=== PATIENT | female | born 1975 | race Caucasian/White ===

== ENCOUNTER 2017-11-15 16:09 | Emergency (ER) | payer OTHER ==
[~2017-11-15] VITALS: Ht 167.6 cm; Wt 55.9 kg
[2017-11-15 17:06] LABS: ABSOLUTE BASOPHILS 0.1 thou/uL (0.0-0.2); ABSOLUTE LYMPHOCYTES 1.2 thou/uL (0.8-5.3); ABSOLUTE MONOCYTES 0.3 thou/uL (0.0-1.2); ABSOLUTE NEUTROPHILS 7.9 thou/uL (1.6-8.1); BASOPHILS 0.7 %; EOSINOPHILS 0.5 %; HEMATOCRIT 39.5 % (37.0-47.0); HEMOGLOBIN 13.7 gm/dL (12.0-15.0); LYMPHOCYTES 12.7 %; MCH 31.6 pg (26.0-34.0); MCHC 34.6 g/dL (28.0-37.0); MCV 91.2 fL (80.0-100.0); MONOCYTES 3.5 %; MPV 8.2 fl. (7.2-11.1); NUCLEATED RBCS 0 /100WBC; PLATELET COUNT* 204 thou/uL (150-400); POLYS 82.6 %; RBC 4.34 mil/uL (4.20-5.00); WBC 9.6 thou/uL (4.0-11.0)
[2017-11-15 17:17] LABS: APTT 27.1 Seconds (25.0-31.3); PROTIME 10.7 Seconds (9.20-11.50)
[2017-11-15 17:20] LABS: ANION GAP 6 mmol/L (7-16); BUN 11 mg/dL (7-18); CALCIUM 8.4 mg/dL (8.5-10.1); CHLORIDE 103 mmol/L (98-107); CO2 23 mmol/L (21-32); CREATININE 0.7 mg/dL (0.6-1.3); GLUCOSE 104 mg/dL (70-99); POTASSIUM 3.2 mmol/L (3.5-5.1); SODIUM 132 mmol/L (136-145)
[2017-11-15 17:27] LABS: ALBUMIN 3.4 g/dL (3.4-5.0); ALKALINE PHOSPHATASE 70 U/L (46-116); SGOT 15 U/L (15-37); SGPT 17 U/L (30-65); TOTAL BILIRUBIN 0.2 mg/dL (<0.1-1.0); TOTAL PROTEIN 6.4 g/dL (6.4-8.2); TROPONIN-I LEVEL <0.06 ng/mL (<0.06)
[2017-11-15 18:46] VITALS: BP 95/58
--- NOTE | 2017-11-17 10:30 | EKG ---
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
== END 2017-11-15 18:47 | disposition home or self-care (01) ==
LOC: M.ERS 16:09
PROVIDERS: Personal Emergency Response Attendant
DX: I20.8 Other forms of angina pectoris (principal); F41.9 Anxiety disorder, unspecified; F17.210 Nicotine dependence, cigarettes, uncomplicated; Z91.041 Radiographic dye allergy status; Z90.49 Acquired absence of other specified parts of digestive tract